=== PATIENT | male | born 1950 | race Caucasian/White ===

== ENCOUNTER → 2024-02-07 12:00 | Outpatient (REF) | payer OTHER, SELFPAY ==
--- NOTE | 2024-01-26 12:18 | PN.DIAED02 ---
Referral
DSME Class Series Code: [id number]
Referred For: Diabetes Self-Management Training, Medical Nutrition Therapy, Disease Management
PHI Release Authorization Form Signed: Yes
Patient Problems:
Current Active Problems
Problem Status Onset
Type 2 diabetes mellitus with hyperglycemia ~01/11/99
Demographic
(1) Type 2 diabetes mellitus with hyperglycemia
Status: Acute Onset Date: ~01/11/99
Qualifiers:
Diabetes mellitus half-way insulin use: without sanding machine buffer use Qualified Code(s): E11.65 - Type 2 diabetes mellitus with hyperglycemia
Code(s): E11.65 - Type 2 diabetes mellitus with hyperglycemia
Patient's primary language-: Vietnamese
Education: High school/GED
Occupation: Retired
Hours Worked/Week: Other (Retired)
- Social
Primary Support Person: Self
Primary Care Takers: Self
Living Arrangements: Self & spouse
- Learning Methods
Preferred Method: Reading, Lecture/audio
Barriers to Learning: None
Glycemic Control
- Blood Glucose Monitoring Assessment
Date: 01/26/24 (FBG 174)
Blood glucose monitoring at home: Yes
Monitor Brands: OneTouch
Frequency: 2x per day
Time: fasting, before dinner
Patient uses Alternate Site Testing: Yes
Patient instructed on Use and Limitation: No
- Ketone Monitoring Assessment
Patient monitoring ketone: No
- Hypoglycemia Assessment
Patient carries glucose source: Yes
Patient experiences hypoglycemia: No
- Hemoglobin A1c
Date: 11/29/23
A1C Percentage (%): 9.1
Medical History of Diabetes
Family Diabetes History: Unknown
Previous Diabetes Education: No
Previous visit with Dietitian: No
Complications/Comorbidity/Specialist: Cataracts, Heart Disease (Atrial Fibrillation), Hypertension
Measures
- Anthropometrics
Height: 5 ft 11 in
Actual Weight: 80.286 kg
- Blood Pressure / Pulse
Blood pressure: 133/73
Pulse: 86
- Diabetes Management
Medical Management for Diabetes: Complete physical exam (11/2023), Dental exam (02/2023), Dilated eye exam (09/2023), Flu Vaccination (07/2023), Foot exam (11/2023), Pneumonia vaccination (07/2023)
Self-Care
- Tobacco Usage
Do you now, or have you ever smoked?: Quit more than 1 year ago
- Alcohol & Drugs Usage
Drinks Alcohol: Yes
Amount/day: Social Occasions (4 Drinks per week)
Uses Recreational Drugs: No
- Meals & Dining
Meals & Dining: Patient skips meals: No, Food Intolerance / Allergy: No, Cultural / Confucianist Dietary Needs: No
Primary Food Hospital Ward Clerk: Spouse
Primary Medical Sales: Spouse
Dining Out Frequency: 1-3x per week
- Physical Activity
Physical Limitation: No
Patient participates in physical Activity: Yes
Activity Types: walking
Duration: 31-40 minutes
Frequency: 3-5x per week
- Self Foot-Care
Foot Problems: None
Performs Self Foot-Exam: Yes
Frequency: Daily
- Patient-Self Assessment
Diabetes Knowledge: Poor
Feelings About Diabetes: Acceptance
General Health: Good
Importance of Health: Extremely
Stress Level: Medium
Diabetes Interferes With:: Nothing
Barriers to Diabetes Management: Nothing
Depression Survey Score: 0
- Diabetes Identification
Carries Diabetes Identification: No
Diabetes Identification Information Provided: No
Care Plan
- Education Needs
Patient Education Needs: Diabetes disease process, Chronic complications, Acute complications, Medication, Monitoring, Physical activity, Psychosocial Adjustment, Nutritional management, Goal setting & problem solving
Recommended Diabetes Training Program based on assessment: Outpatient Diabetes Education Program
- Plan of Care
Plan of Care:
Met with Mr. Victoria today for registration and initiation of Diabetes Self management. Pt was recommended by his PCP due to elevated A1C of 9.1% that was noted on recent blood work. Patient states he was switched to [facility] from [facility] when his
A1C increased to 9.1.
He has a glucose monitor and has been checking his blood sugars twice a day, fasting and before dinner. Reports that he has noted some improvement in his blood sugars, with FBG range of 160 to 190 and pre-dinner range of 140 to 160.
Pt was counseled with emphasis on need to adhere to a healthy life style including healthy eating, exercising, taking his medications and monitoring blood glucose. We spent a good amount of time discussing importance of Physical activity. Goals for
were established including physical activity of 30 minutes/5 days a week.
--- NOTE | 2024-01-26 13:38 | PN.DIAED04 ---
Education Record
- Education Record
Class Attended: Other (Pre-Registration for DSME Classes)
DSME Class Series Code: [id number]
Instructor: Nurse Practitioner
Class Length (mins): 60
Pre-Program Knowledge: Needs review / Assistance
Pre-Test Score (%): 65
Goals
- Goal 1
Being Active: Exercise 30 minutes-5 times per week
Goals To Be Evaluated: Exercise 30 mins-5x/week
- Goal 2
Healthy Eating: Make better food choices
Goals To Be Evaluated: Make better food choices
- Goal 3
Monitoring: Follow monitoring schedule
Goals To Be Evaluated: Follow monitoring times
--- NOTE | 2024-02-08 14:14 | PN.DIAED14 ---
This is to notify you that your patient with diabetes, OZZY CURIEL ( 1950), has enrolled in our diabetes self-management classes that are being held at [facility].
These classes will include an introduction to diabetes, diet, medication, exercise and prevention of complications. At the end of our class series, you will receive a report of your patient's participation and progress for your records.
Please contact me at the Diabetes Center, , if there is any particular information regarding your patient that might be helpful to me.
Sincerely,
TIM Wilson-, [facility]
Director
Diabetes & Nutrition Services
== END ==
LOC: DES 12:00
PROVIDERS: ATTENDING PHYSICIAN Physician Assistant Medical
DX: E11.65 Type 2 diabetes mellitus with hyperglycemia (principal)
CPT/HCPCS: 99078

== ENCOUNTER → 2024-02-14 12:00 | Outpatient (REF) | payer OTHER, SELFPAY ==
--- NOTE | 2024-02-15 10:44 | PN.DIAED04 ---
Education Record
- Education Record
Class Attended: Class 2
DSME Class Series Code: [id number]
Instructor: Registered Dietitian (Susi Alvarado, RD, LDN, CDE)
Class Length (mins): 120
== END ==
LOC: DES 12:00
PROVIDERS: ATTENDING PHYSICIAN Physician Assistant Medical
DX: E11.65 Type 2 diabetes mellitus with hyperglycemia (principal)
CPT/HCPCS: 99078

== ENCOUNTER → 2024-02-28 12:00 | Outpatient (REF) | payer OTHER, SELFPAY | LOC: DES 12:00 | PROVIDERS: ATTENDING PHYSICIAN Physician Assistant Medical | DX: E11.65 Type 2 diabetes mellitus with hyperglycemia (principal) | CPT/HCPCS: 99078 ==

== ENCOUNTER → 2024-03-06 12:00 | Outpatient (REF) | payer OTHER, SELFPAY ==
--- NOTE | 2024-03-07 11:34 | PN.DIAED20 ---
This is to notify you that your patient with diabetes, OZZY CURIEL ( 1950), has attended the following Diabetes Self-Management Education Classes.
_X_ Class 1 (120 minutes): Diabetes Overview - monitoring, stress/psychosocial adjustment, support, goal setting
_X_ Class 2 (120 minutes): Meal Planning - serving sizes, menu plans
___ Class 3 (120 minutes): Introduction to Carbohydrate Counting, Analyzing Food Labels
_X_ Class 4 (120 minutes): Medication, Exercise and Activity
_X_ Class 5 (120 minutes): Sick Day Management, Strategies to Reduce Complications, Problem Solving, Resources
The following behavioral goals were identified:
Exercise 30 mins-5x/week
Make better food choices
Follow monitoring times
A follow-up call will be made within three to six months to evaluate attainment of these goals and to check post-program Hemoglobin A1c and overall progress. All class participants are encouraged to contact me if I can be any further assistance in
learning how to manage their diabetes.
Sincerely,
TIM Wilson-, [facility]
Director
Diabetes & Nutrition Services
--- NOTE | 2024-03-08 14:47 | PN.DIAED04 ---
Education Record
- Education Record
Class Attended: Class 5
DSME Class Series Code: [id number]
Instructor: Nurse Practitioner (TIM Baumann)
Class Curriculum:
Outpatient Diabetes Education Program:
Class 5 (120 minutes)
Prevent, detect, and treat acute complications
Prevent, detect, and treat chronic complications through risk reduction
Develop personal strategies to address psychosocial issues and concerns
Development of diabetes self-management support plan
Letter to physician with DSMS plan attached sent
Class Length (mins): 120
Post-Program Knowledge: Demonstrates competency
Post-Test Score (%): 83
Post-Program Assessment
- Post-Program Assessment
Actual Weight: 80.739 kg
Blood pressure: 130/77
Post-Program Depression Survey Score: 1
Reviewing Previous Goals?: Yes
Pre-Program Depression Survey Score: 0
- Goals 1 Evaluation
Goals To Be Evaluated: Exercise 30 mins-5x/week
- Goals 2 Evaluation
Goals To Be Evaluated: Make better food choices
- Goals 3 Evaluation
Goals To Be Evaluated: Follow monitoring times
== END ==
LOC: DES 12:00
PROVIDERS: ATTENDING PHYSICIAN Physician Assistant Medical
DX: E11.65 Type 2 diabetes mellitus with hyperglycemia (principal)
CPT/HCPCS: 99078

== ENCOUNTER → 2024-03-27 18:00 | Outpatient (REF) | payer OTHER, SELFPAY ==
--- NOTE | 2024-03-28 08:58 | PN.DIAED04 ---
Education Record
- Education Record
Class Attended: Class 3
DSME Class Series Code: [id number]
Instructor: Registered Dietitian (Susi Alvarado, RD, LDN, CDE)
Class Curriculum:
Outpatient Diabetes Education Program:
Class 3 (120 minutes)
Incorporate nutritional management into lifestyle
Class Length (mins): 120
Post-Class 2 & 3 Test Score (%): 69
== END ==
LOC: DES 18:00
PROVIDERS: ATTENDING PHYSICIAN Physician Assistant Medical
DX: E11.65 Type 2 diabetes mellitus with hyperglycemia (principal)
CPT/HCPCS: 99078